=== PATIENT | male | born 1935 | race Caucasian/White ===

== ENCOUNTER 2017-10-18 12:43 | Emergency (ER) | payer MEDICARE, BC | END 2017-10-18 15:21 | disposition home or self-care (01) | LOC: PHEFT 12:43 | DX: J06.9 Acute upper respiratory infection, unspecified (principal); E78.00 Pure hypercholesterolemia, unspecified; I10 Essential (primary) hypertension; Z79.82 Long term (current) use of aspirin; Z79.899 Other long term (current) drug therapy | CPT/HCPCS: 99284 ==